=== PATIENT | male | born 1985 | race Two or more races ===

== ENCOUNTER 2025-02-08 09:59 | Emergency (ER) | payer OTHER ==
[~2025-02-08] VITALS: Ht 177.8 cm; Wt 69.9 kg
[2025-02-08 10:23] VITALS: TEMP 98.1
[2025-02-08] MEDS ORDERED: MAGNESIUM CITRATE 296 ML BOTTLE ONE (10:46)
[2025-02-08] MEDS ORDERED: MINERAL OIL 133 ML (PYXIS) 1 EA ENEMA RC ONE (10:46)
[2025-02-08 10:49] LABS: PLATELET COUNT (AUTO) 240 K/uL (150-450); RED BLOOD CELL COUNT(AUTO) 5.10 MIL/uL (4.5-6.0); RED CELL DISTRIBUTION WIDTH 12.6 % (11.5-15.0); WHITE BLOOD COUNT (AUTO) 8.2 K/uL (4.3-11.0)
[2025-02-08 10:56] LABS: CALCIUM, SERUM 8.9 mg/dL (8.5-10.1); CREATININE 1.1 mg/dL (0.6-1.3); SODIUM SERUM 139.0 mmol/L (136-145); UREA NITROGEN, BLOOD 13.0 mg/dL (7-18)
[2025-02-08 11:02] LABS: ASPARTATE AMINOTRANSFERASE 17.0 U/L (15-37); TOTAL PROTEIN, SERUM 7.8 g/dL (6.4-8.2)
[2025-02-08] MEDS: IV NS 0.9% 1,000 ML BAG IV ONE (11:05)
[2025-02-08] MEDS: NA PHOS,M-B/NA PHOS,DI-BA 1 EA ENEMA RC ONE (11:07)
[2025-02-08] MEDS: MAGNESIUM CITRATE 296 ML BOTTLE PO ONE (11:10)
[2025-02-08] MEDS ORDERED: POLYETHYLENE GLYCOL 3350 17 GM POWD.PACK ONE (12:23)
[2025-02-08] MEDS: POLYETHYLENE GLYCOL 3350 17 GM POWD.PACK PO ONE (12:24)
[2025-02-08 12:30] VITALS: BP 120/85; O2SAT 98
== END 2025-02-08 12:27 | disposition home or self-care (01) ==
LOC: ER 10:05
DX: K59.00 Constipation, unspecified (principal); R10.84 Generalized abdominal pain
CPT/HCPCS: 99284; 74176; 96360; 85025; 80048; 83690; 80076; 36415; J7030